=== PATIENT | female | born 1985 ===

== ENCOUNTER 2017-12-30 20:13 | Emergency (ER) | payer BC, MEDICAID, OTHER ==
[2017-12-30 20:13] VITALS: BMI 31.4
[2017-12-30 20:34] VITALS: PULSE 78
--- NOTE | 2017-12-30 21:01 | C.PDOC ---
History Of Present Illness 32 year old female, currently 12 weeks , presents to the ED complaining of daily nausea and vomiting for the past few weeks. Symptoms occur during the afternoon. Patient has had all normal evaluations throughout her care, including a normal US this week. She was prescribed Zofran but has not been taking it. Of note, patient was diagnosed with hyperemesis gravidarum in her 1st and used Pepcid and Zofran at that time. She denies any vaginal discharge, vaginal bleeding, dysuria, or hematuria. Time Seen by Provider: 12/30/17 20:40 Chief Complaint (Nursing): Headache History Per: Patient History/Exam Limitations: no limitations Onset/Duration Of Symptoms: Days Current Symptoms Are (Timing): Still Present Past Medical History Reviewed: Historical Data, Nursing Documentation, Vital Signs Vital Signs: Last Vital Signs Temp 97.5 F L 12/30/17 20:28 Pulse 78 12/30/17 20:28 Resp 20 12/30/17 20:28 BP 102/69 12/30/17 20:28 Pulse Ox 98 12/30/17 21:04 - Medical History PMH: Asthma, Migraine, Seizures (as a child) Denies: Depression, Chronic Kidney Disease Surgical History: - [facility] Procedures INJECT/INFUSE ELECTROLYT (05/17/14) INJECT/INFUSE NEC (05/17/14) Family History: States: No Known Family Hx - Social History Hx Tobacco Use: No Hx Alcohol Use: No Hx Substance Use: No - Immunization History Hx Influenza Vaccination: Yes Review Of Systems Except As Marked, All Systems Reviewed And Found Negative. Constitutional: Negative for: Fever, Chills Respiratory: Negative for: Shortness of Breath Gastrointestinal: Positive for: Nausea, Vomiting Genitourinary: Negative for: Dysuria, Hematuria, Vaginal Discharge, Vaginal Bleeding Neurological: Positive for: Headache Physical Exam - Physical Exam Appears: No Acute Distress, Other (Obese female) Skin: Warm, Dry, No Rash Head: Atraumatic, Normacephalic Eye(s): bilateral: Normal Inspection, PERRL, EOMI Nose: Normal Oral Mucosa: Moist Neck: Normal ROM, Supple Chest: Symmetrical Cardiovascular: Rhythm Regular, No Murmur Respiratory: Normal Breath Sounds, No Accessory Muscle Use, No Rhonchi, No Wheezing Gastrointestinal/Abdominal: Soft, No Tenderness, No Guarding, Other (gravid abdomen) Extremity: Bilateral: Atraumatic, Normal Color And Temperature, Normal ROM Neurological/Psych: Oriented x3, Normal Speech ED Course And Treatment - Laboratory Results Result Diagrams: 12/30/17 21:46 12/30/17 21:46 O2 Sat by Pulse Oximetry: 98 (RA) Pulse Ox Interpretation: Normal Medical Decision Making Medical Decision Making: Time: 20:49 Initial Plan: * Urinalysis * Tylenol 325 mg PO * Zofran 4 mg PO * Pepcid 20 mg PO * Reevaluation hyperemesis gravidarum, similar to 1st 11 yrs ago Disposition Doctor Will See Patient In The: Office Counseled Patient/Family Regarding: Studies Performed, Diagnosis - Disposition Disposition: HOME/ ROUTINE Disposition Time: 22:20 Condition: GOOD Forms: [facility] (Bulgarian) - Clinical Impression Clinical Impression: Vomiting affecting - Scribe Statement The provider has reviewed the documentation as recorded by the Scribe (Jamaica De Jesus) Provider Attestation: All medical record entries made by the Scribe were at my direction and personally dictated by me. I have reviewed the chart and agree that the record accurately reflects my personal performance of the history, physical exam, medical decision making, and the department course for this patient. I have also personally directed, reviewed, and agree with the discharge instructions and disposition.
[2017-12-30 21:22] LABS: SQUAMOUS EPITHIAL 3 /hpf (0-5); URINE BILIRUBIN NEGATIVE (NEGATIVE); URINE BLOOD NEGATIVE (NEGATIVE); URINE CLARITY Clear (Clear); URINE COLOR Yellow (YELLOW); URINE GLUCOSE (UA) NORMAL (Normal); URINE LEUKOCYTE ESTERASE NEG Leu/uL (Negative); URINE PROTEIN NEGATIVE (NEGATIVE); URINE UROBILINOGEN NORMAL mg/dL (0.2-1.0)
[2017-12-30] MEDS ORDERED: Sodium Chloride 0.9% 1,000 ML IV ONE (21:29)
[2017-12-30] MEDS ORDERED: Sodium Chloride 0.9% 1,000 ML ONE (21:34)
[2017-12-30 21:51] LABS: BASO % 0.5 % (0.0-2.0); EOS # 0.2 K/uL (0.0-0.7); EOS % 2.1 % (0.0-4.0); HEMOGLOBIN 11.5 g/dL (11.0-16.0); LYMPH # 2.3 K/uL (1.0-4.3); LYMPH % 23.3 % (20.0-40.0); MEAN CELL VOLUME 86.2 fL (81.0-99.0); MEAN CORPUSCULAR HEMOGLOBIN 29.2 pg (27.0-31.0); MEAN CORPUSCULAR HGB CONC 33.9 g/dL (33.0-37.0); MEAN PLATELET VOLUME 8.3 fL (7.2-11.7); MONO # 0.6 K/uL (0.0-0.8); MONO % 5.9 % (0.0-10.0); NEUT # 6.6 K/uL (1.8-7.0); NEUT % 68.2 % (50.0-75.0); RBC 3.95 Mil/uL (3.80-5.20); RED CELL DISTRIBUTION WIDTH 14.6 % (11.5-14.5); WHITE BLOOD COUNT 9.7 K/uL (4.8-10.8)
[2017-12-30 22:08] LABS: ALBUMIN 3.9 g/dL (3.5-5.0); ALT/SGPT 18 U/L (9-52); AST/SGOT 23 U/L (14-36); BLOOD UREA NITROGEN 12 mg/dL (7-17); CALCIUM 8.8 mg/dl (8.6-10.4); GFR AFRICAN-AMERICAN > 60; GFR NON-AFRICAN AMERICAN > 60
[2017-12-30 22:37] VITALS: BP 95/62; RESP 18; TEMP 97.9; O2SAT 100
== END 2017-12-30 22:38 | disposition home or self-care (01) ==
LOC: C.ER 20:13
DX: O21.9 Vomiting of pregnancy, unspecified (principal); Z3A.12 12 weeks gestation of pregnancy
CPT/HCPCS: 80053; 81001; 85025; 96374; 96375; 99284; J2405; J7040

== ENCOUNTER 2018-01-27 10:15 | Emergency (ER) | payer BC, OTHER ==
[2018-01-27 10:15] VITALS: BMI 31.4
[2018-01-27 10:54] VITALS: RESP 20; O2SAT 97
[2018-01-27] MEDS ORDERED: Sodium Chloride 0.9% 1,000 ML IV ONE (11:31)
[2018-01-27 11:42] LABS: BASO % 0.5 % (0.0-2.0); EOS # 0.2 K/uL (0.0-0.7); HEMOGLOBIN 11.4 g/dL (11.0-16.0); LYMPH # 1.4 K/uL (1.0-4.3); LYMPH % 17.1 % (20.0-40.0); MEAN CELL VOLUME 86.6 fL (81.0-99.0); MEAN CORPUSCULAR HEMOGLOBIN 29.9 pg (27.0-31.0); MEAN CORPUSCULAR HGB CONC 34.5 g/dL (33.0-37.0); MEAN PLATELET VOLUME 8.3 fL (7.2-11.7); MONO # 0.3 K/uL (0.0-0.8); MONO % 4.2 % (0.0-10.0); NEUT # 6.3 K/uL (1.8-7.0); NEUT % 76.2 % (50.0-75.0); RBC 3.8 Mil/uL (3.80-5.20); WHITE BLOOD COUNT 8.3 K/uL (4.8-10.8)
--- NOTE | 2018-01-27 11:54 | C.PDOC ---
History Of Present Illness 32yo female, currently 16 weeks , presents to ED with complaints of persistent nausea and vomiting for the past 3 days. Patient states her presentation is probably related to her as she has had similar episodes in her prior pregnancies as well. She was evaluated in this ER recently and given antiemetic which she took with no relief. Otherwise, patient denies any fever, chills, abdominal pain, vaginal bleeding. She has been following up with her OB regularly. Denies abdominal pain or vaginal bleeding. Time Seen by Provider: 01/27/18 11:25 Chief Complaint (Nursing): GI Problem History Per: Patient History/Exam Limitations: no limitations Onset/Duration Of Symptoms: Days Current Symptoms Are (Timing): Still Present Associated Symptoms: Nausea, Vomiting Abnormal Vaginal Bleeding: No Past Medical History Reviewed: Historical Data, Nursing Documentation, Vital Signs Vital Signs: Last Vital Signs Temp 98.4 F 01/27/18 13:33 Pulse 93 H 01/27/18 13:33 Resp 20 01/27/18 13:33 BP 112/80 01/27/18 13:33 Pulse Ox 97 01/27/18 13:44 - Medical History PMH: Asthma, Migraine, Seizures (as a child) Denies: Depression, Chronic Kidney Disease Surgical History: - [facility] Procedures INJECT/INFUSE ELECTROLYT (05/17/14) INJECT/INFUSE NEC (05/17/14) Family History: States: No Known Family Hx - Social History Hx Tobacco Use: No Hx Alcohol Use: No Hx Substance Use: No - Immunization History Hx Influenza Vaccination: Yes Review Of Systems Except As Marked, All Systems Reviewed And Found Negative. Constitutional: Negative for: Fever, Chills Cardiovascular: Negative for: Chest Pain Gastrointestinal: Positive for: Nausea, Vomiting. Negative for: Abdominal Pain Genitourinary: Negative for: Vaginal Bleeding Physical Exam - Physical Exam Appears: Non-toxic, No Acute Distress Skin: Normal Color, Warm Head: Atraumatic, Normacephalic Eye(s): bilateral: Normal Inspection, PERRL, EOMI Neck: Normal ROM, Supple Chest: Symmetrical Cardiovascular: Rhythm Regular, No Murmur Respiratory: Normal Breath Sounds Gastrointestinal/Abdominal: Normal Exam, Soft, No Tenderness, No Distention, No Guarding Extremity: Normal ROM Neurological/Psych: Oriented x3, Normal Speech ED Course And Treatment - Laboratory Results Result Diagrams: 01/27/18 11:39 01/27/18 11:39 O2 Sat by Pulse Oximetry: 97 (RA) Pulse Ox Interpretation: Normal Medical Decision Making Medical Decision Making: Impression: Nausea and vomiting in setting of Plan: -- Labs -- Zofran 8mg IVP -- Urinalysis Labs reviewed and unremarkable. No acute changes from last visit. P Patient remained well in no distress. She is asking to contact her cracking still operator [phone] Multiple attempts made to contact Dr. Dias with no call backs [phone] Patient informed unable to contact her cracking still operator. She remains stable and will be discharged. [phone] RN informs me patient vomited again. I go to bedside and patient seems irritated, I offer additional fluids and Reglan, she does not want it. Patient want her iron shot Venofer and asking to contact her kitchen cleaner Dr Gupta [phone] Dr Gupta is out of town and spoke with covering physician DR Villa and discussed case and lab normal Hgb, he does not recommend Venofer at this time. Patient can follow up in the office. I went back to bedside to explain to patient. She does not want any more medications and wants to go home. She will follow up with ob outpatient. She was stable for discharge Disposition Counseled Patient/Family Regarding: Studies Performed, Diagnosis, Need For Followup - Disposition Referrals: Chele Dias MD [Staff Provider] - Disposition: HOME/ ROUTINE Disposition Time: 13:29 Condition: STABLE Additional Instructions: Please follow up with your cracking still operator in timely manner Instructions: Nausea and Vomiting of (DC) Forms: [employer] (Singaporean) - POA Present On Arrival: None - Clinical Impression Clinical Impression: Hyperemesis gravidarum - PA / NNPS / Resident Statement MD/DO has reviewed & agrees with the documentation as recorded. - Scribe Statement The provider has reviewed the documentation as recorded by the Scribe (Stephani Lorenzo) Provider Attestation: All medical record entries made by the Nadjaiboctavia were at my direction and personally dictated by me. I have reviewed the chart and agree that the record accurately reflects my personal performance of the history, physical exam, medical decision making, and the department course for this patient. I have also personally directed, reviewed, and agree with the discharge instructions and disposition.
[2018-01-27 11:55] LABS: ALBUMIN 3.7 g/dL (3.5-5.0); ALT/SGPT 21 U/L (9-52); AST/SGOT 27 U/L (14-36); BLOOD UREA NITROGEN 11 mg/dL (7-17); GFR AFRICAN-AMERICAN > 60; GFR NON-AFRICAN AMERICAN > 60
[2018-01-27] MEDS ORDERED: Sodium Chloride 0.9% 1,000 ML ONE (11:59)
[2018-01-27 12:21] LABS: SQUAMOUS EPITHIAL 4 /hpf (0-5); URINE BILIRUBIN NEGATIVE (NEGATIVE); URINE BLOOD 1+ (NEGATIVE); URINE CLARITY Hazy (Clear); URINE COLOR Yellow (YELLOW); URINE GLUCOSE (UA) NORMAL (Normal); URINE LEUKOCYTE ESTERASE NEG Leu/uL (Negative); URINE PROTEIN NEGATIVE (NEGATIVE); URINE UROBILINOGEN NORMAL mg/dL (0.2-1.0)
[2018-01-27 13:34] VITALS: BP 112/80; PULSE 93; TEMP 98.4
== END 2018-01-27 14:04 | disposition home or self-care (01) ==
LOC: C.ER 10:15
DX: O21.0 Mild hyperemesis gravidarum (principal); Z3A.16 16 weeks gestation of pregnancy
CPT/HCPCS: 80053; 81001; 85025; 96361; 96374; 99284; J2405; J7040